=== PATIENT | female | born 1965 ===

== ENCOUNTER 2021-03-07 15:15 | Outpatient (CLI) | payer OTHER | END 2021-03-07 15:30 | disposition home or self-care (01) | LOC: PPH VACUNA 15:15 | PROVIDERS: ATTEND Emergency Medicine Pediatric Emergency Medicine | DX: Z23 Encounter for immunization (principal) ==

== ENCOUNTER 2021-09-18 11:45 | Outpatient (CLI) | payer OTHER | END 2021-09-18 11:55 | disposition home or self-care (01) | LOC: PPH VACUNA 11:45 | PROVIDERS: ATTEND Emergency Medicine Pediatric Emergency Medicine | DX: Z23 Encounter for immunization (principal) ==

== ENCOUNTER 2022-05-22 09:17 | Outpatient (CLI) | payer OTHER | END 2022-05-22 09:27 | disposition home or self-care (01) | LOC: PPH VACUNA 09:17 | PROVIDERS: ATTEND Emergency Medicine Pediatric Emergency Medicine | DX: Z23 Encounter for immunization (principal) ==